=== PATIENT | male | born 1965 | race Caucasian/White ===

== ENCOUNTER 2016-11-19 07:10 | Emergency (ER) | payer SELFPAY ==
[~2016-11-19] VITALS: Ht 170.2 cm; Wt 91.0 kg
[~2016-11-19 07:10] MED LIST: BACTDS PO; CEPH-443 PO
[2016-11-19 07:16] VITALS: Ht 170.2 cm; Wt 91.0 kg
[2016-11-19] MEDS ORDERED: ONDA4TAB8 PO (08:35)
[2016-11-19] MEDS ORDERED: IBUP-1542 PO (08:35)
[2016-11-19 08:59] VITALS: BP 122/68; PULSE 66; RESP 18
--- NOTE | 2016-11-19 11:46 | ERD ---
ER Documentation Chief Complaint Date/Time DATE: 11/19/16 TIME: 11:36 Chief Complaint feeling nauseous x 2 days HPI This is a 51-year-old male complaining of nausea and diarrhea for 2 days. Denies any recent travel or sick contacts. Patient states that he developed nausea and diarrhea after eating breakfast. He had at least 5 episodes of watery diarrhea yesterday, but patient states that his nausea has resolved and diarrhea frequency is less this a.m. Patient denies any dysuria, fever, cough or vomiting. Medical and surgical history are unremarkable. Patient is tolerating oral intake and has been drinking Gatorade since the onset of symptoms. ROS All systems reviewed and are negative except as per history of present illness. Medications Home Meds Active Scripts Ibuprofen* (Motrin*) 600 Mg Tab, 600 MG PO Q6H Y for PAIN AND OR ELEVATED TEMP, #30 TAB Prov:CIERRA BAE 11/19/16 Ondansetron Hcl* (Zofran*) 4 Mg Tablet, 4 MG PO Q6H for NAUSEA AND/OR VOMITING, #30 TAB Prov:CIERRA BAE 11/19/16 Sulfamethoxazole-Trimethoprim* (Bactrim* DS) 800-160 Mg Tab, 1 TAB PO BID for 10 Days, TAB Prov:KHUSHBOO CHARLES NP 05/12/15 Cephalexin* (Keflex*) 500 Mg Capsule, 500 MG PO QID for 7 Days, CAP Prov:KHUSHBOO CHARLES NP 05/12/15 Reported Medications [None] No Conflict Check 04/08/10 Allergies Allergies: Coded Allergies: No Known Allergy (Unverified , 05/12/15) PMhx/Soc Medical and Surgical Hx: pt denies Medical Hx History of Surgery: Yes (CA tumors rmvd tr inguinal area (does not recall type of CA) "yrs ago") Anesthesia Reaction: No Hx Neurological Disorder: No Hx Respiratory Disorders: No Hx Cardiac Disorders: No Hx Psychiatric Problems: No Hx Miscellaneous Medical Probl: No Hx Alcohol Use: No Hx Substance Use: No Hx Tobacco Use: No Physical Exam Vitals Vital Signs Date Time Temp Pulse Resp B/P Pulse Ox O2 Delivery O2 Flow Rate FiO2 11/19/16 08:59 66 18 122/68 99 Room Air 11/19/16 07:16 98.1 78 19 128/88 97 Physical Exam Physical Exam CONST: Well-developed, well-nourished, in no acute distress. Nontoxic in appearance. HEENT: Atraumatic. Normal conjunctiva. EOM intact. TM intact. External ear is normal. Clear oropharnyx without erythema. No uvular deviation. Moist mucous membranes. Supple neck. No meningismus. No submandibular induration. RESP: Clear to auscultation bilaterally. No wheezing. CARDIO: Regular rate and rhythm, no murmurs. ABD: Mild tenderness on the periumbilical area. Soft yet non distended. Normal bowel sounds. No McBurney's point tenderness. No guarding or rigidity. No peritoneal signs. SKIN: No petechiae or rashes. BACK: No midline or flank tenderness. EXT: No cyanosis or edema. Distal pulses equal and bilateral. NEURO: Awake and alert, appropriate for age. Procedures/MDM EMERGENCY DEPARTMENT COURSE/MEDICAL DECISION MAKING This is a 51-year-old male who comes to the emergency room secondary to complaints of nausea and diarrhea for 2 days. Patient's nausea has resolved today and diarrhea frequency is less this morning. Patient has been afebrile and appears nontoxic. Patient has been tolerating fluid intake since onset of symptoms. I believe her symptoms are food related. My primary diagnosis is diarrhea. Secondary diagnosis abdominal pain Differential diagnoses considered but not limited to acute appendicitis, diverticulitis, pancreatitis, cholecystitis, gastritis, pyelonephritis, UTI, constipation, inflammatory bowel disease.. Pt is hemodynamically stable upon reassessment. The patient was discharged for outpatient management with a prescription for ibuprofen and Zofran. Patient was also instructed to increase oral intake and consume bland foods until diarrhea has resolved. The patient was advised to followup with their PMD in 1-2 days and to return to the Emergency Department if there are any new or worsening symptoms. The patient understood and agreed with the diagnosis, treatment and plan. Patient is stable for discharge at this time. Departure Diagnosis: Primary Impression: Diarrhea Diarrhea type: unspecified type Qualified Code: R19.7 - Diarrhea, unspecified type Additional Impressions: Abdominal pain Abdominal location: periumbilical Qualified Code: R10.33 - Periumbilical abdominal pain Nausea Condition: Stable Patient Instructions: Abdominal Pain, Treating Diarrhea, Nausea [facility] Usted se wilson hecho un examen mdico de control que le indica que no est en sonal condicin que requiera tratamiento urgente en el Departamento de Emergencia. Un estudio ms profundo y el tratamiento de reyes condicin pueden esperar sin ningn riesgo hasta que usted sea atendida/o en el consultorio de reyes mdico o sonal cl arlyn. Es responsabilidad suya arreglar sonal kurtis para el seguimiento del madhuri. MANEJO DE CONDICIONES NO URGENTES EN EL FUTURO 1) Si usted tiene un mdico de atencin primaria: Usted debera llamar a reyes mdico de atencin primaria antes de venir al departamento de emergencia. Despus de las horas de consultorio, reyes doctor o reyes asociado/a est disponible por telfono. El mdico o enfermero de [place] en el servicio telefnico puede asesorarle por clarence medio para atender el problema, o madhuri contrario se puede programar sonal kurtis. 2) Si usted no tiene un mdico de atencin primaria: Llame al mdico o clnica de referencia que aparece abajo halima las horas de consultorio para hacer sonal kurtis para que le vean. CLINICAS: [facility] [phone] [facility] [phone] [facility] [phone] [address] [facility] [facility] [phone] [facility] [place] [id number] [phone] [facility]. [phone] [address] [facility] () Usted se wilson hecho un examen mdico de control que le indica que no est en sonal condicin que requiera tratamiento urgente en el Departamento de Emergencia. Un estudio ms profundo y el tratamiento de reyes condicin pueden esperar sin ningn riesgo hasta que usted sea atendida/o en el consultorio de reyes mdico o sonal cl arlyn. Es responsabilidad suya arreglar sonal kurtis para el seguimiento del madhuri. MANEJO DE CONDICIONES NO URGENTES EN EL FUTURO 1) Si usted tiene un mdico de atencin primaria: Usted debera llamar a reyes mdico de atencin primaria antes de venir al departamento de emergencia. Despus de las horas de consultorio, reyes doctor o reyes asociado/a est disponible por telfono. El mdico o enfermero de [place] en el servicio telefnico puede asesorarle por clarence medio para atender el problema, o madhuri contrario se puede programar sonal kurtis. 2) Si usted no tiene un mdico de atencin primaria: Llame al mdico o condado institucions de referencia que aparece abajo halima las horas de consultorio para hacer sonal kurtis para que le vean. SI USTED NO PUEDE PAGAR PARA LINDA UN MEDICO puede ir a: [facility] [id number] [place] [address] [facility] [address] [place] [address] [facility] [address] [place] [address] PARA [facility] [address] [place], [place] [id number] Additional Instructions: beber mucho lquido y comer dieta blanda hasta que la diarrea se resolvi Seguimiento con reyes mdico de atencin primaria en 1-2 an. Volver al Departamento de la emergencia inmediatamente si tiene alguno nuevo o empeoramiento de los sntomas, incontrolada fiebre u otros sntomas inexplicables. [place] todos los medicamentos sheri lo indique. CIERRA BAE Nov 19, 2016 11:46
== END 2016-11-19 09:01 | disposition home or self-care (01) ==
LOC: FTE 07:10
DX: R19.7 Diarrhea, unspecified (principal); R10.33 Periumbilical pain
CPT/HCPCS: 99283